=== PATIENT | male | born 1945 | race Caucasian/White ===

== ENCOUNTER 2021-11-29 04:25 | Day surgery (SDC) | payer OTHER ==
[2021-11-28 12:30] VITALS: BMI 24.3
[2021-11-29 09:09] VITALS: TEMP 98
[2021-11-29 10:12] VITALS: BP 121/79; PULSE 58
== END 2021-11-29 09:50 | disposition home or self-care (01) ==
LOC: JASU-ENDO 04:25
PROVIDERS: ATTEND Internal Medicine Gastroenterology
PROC: 0DJD8ZZ Inspection of Lower Intestinal Tract, Via Natural or Artificial Opening Endoscopic (ICD-10-PCS; principal; 2021-11-29 09:00)
DX: Z12.11 Encounter for screening for malignant neoplasm of colon (principal); Z86.010 Personal history of colon polyps; K57.30 Diverticulosis of large intestine without perforation or abscess without bleeding